=== PATIENT | female | born 1995 ===

== ENCOUNTER 2024-06-04 16:38 | Emergency (ER) | payer OTHER ==
[~2024-06-04] VITALS: Ht 160 cm; Wt 84.4 kg
[2024-06-04 17:55] LABS: Source, Urine Clean Catch
[2024-06-04 18:03] LABS: Appearance, Urine Clear (Clear); Bilirubin, Urine Neg (Neg); Blood, Urine Neg (Neg); Glucose Qualitative, Urine Neg (Neg); Ketones, Urine 1+ (Neg); Leukocyte Esterase, Urine Neg (Neg); Nitrite, Urine Neg (Neg); Protein, Urine Neg (Neg); Urobilinogen, Urine NORM (Normal); pH, Urine 6.5 (5.0-8.0)
[2024-06-04 18:07] LABS: Color, Urine Pale Yellow (P-Yellow)
== END 2024-06-04 19:30 | disposition home or self-care (01) ==
LOC: ER 16:38
PROVIDERS: Physician Assistant
DX: O26.892 Other specified pregnancy related conditions, second trimester (principal); Z3A.19 19 weeks gestation of pregnancy; R10.32 Left lower quadrant pain; R10.31 Right lower quadrant pain
CPT/HCPCS: 76816; 81003; 99284-25

== ENCOUNTER 2024-10-10 19:01 | Inpatient (IN) | payer OTHER ==
[2024-10-10] VITALS (10 sets, daily range): BP systolic 126–154; BP diastolic 72–98
[~2024-10-10] VITALS: Ht 160 cm; Wt 93.1 kg
[~2024-10-10 19:01] MED LIST: Methylergonovine Maleate 0.2MG / ML 1ML Amp IV ONE
[2024-10-10] MEDS ORDERED: FentaNYL 2mcg/ml-Bup 0.1% Epd 250 ML EPI PRN (19:15)
[2024-10-10] MEDS ORDERED: ePHEDrine Sulfate 50 MG/ML 1ML Injection XX PRN (19:15)
[2024-10-10] MEDS ORDERED: Tranexamic Acid 100 ML IV SCH (19:15)
[2024-10-10] MEDS ORDERED: Ondansetron HCl 2 MG / ML 2ML Vial IV PRN (19:15)
[2024-10-10] MEDS ORDERED: Methylergonovine Maleate 0.2MG / ML 1ML Amp IM PRN (19:15)
[2024-10-10] MEDS ORDERED: OXYTOCIN/RINGER'S LACTATE 500 ML IV PRN (19:15)
[2024-10-10] MEDS ORDERED: Oxytocin 10 Unit / ML Vial IM PRN (19:15)
[2024-10-10] MEDS ORDERED: Carboprost Tromethamine 250 MCG/ML 1ML Amp IM PRN (19:15)
[2024-10-10] MEDS ORDERED: FentaNYL Citrate 50 MCG/ML 2 ML Injection IV PRN (19:20)
[2024-10-10] MEDS ORDERED: PRENATAL 19 TA1 EAC3 PO (19:45)
[2024-10-10] MEDS ORDERED: URSO300 PO (19:46)
[2024-10-10 19:52] LABS: BASOPHILS ABSOLUTE AUTO 0.02 K/mm3 (0.00-0.23); BASOPHILS PERCENT AUTO 0 % (0-2); EOSINOPHILS ABSOLUTE AUTO 0.03 K/mm3 (0.00-0.68); EOSINOPHILS PERCENT AUTO 0 % (0-6); Hematocrit 30.5 % (33.0-51.0); Hemoglobin 10.6 g/dL (11.5-16.0); IMMATURE GRAN ABSOLUTE AUTO 0.03 K/mm3 (0.00-0.10); IMMATURE GRAN PERCENT AUTO 0 % (0-1); LYMPHOCYTES ABSOLUTE AUTO 1.88 K/mm3 (0.84-5.20); LYMPHOCYTES PERCENT AUTO 21 % (21-46); MONOCYTES ABSOLUTE AUTO 0.65 K/mm3 (0.16-1.47); MONOCYTES PERCENT AUTO 7 % (4-13); Mean Corpuscular HGB Conc 34.8 g/dL (31.5-36.5); Mean Corpuscular Volume 82 fL (80-100); NEUTROPHILS ABSOLUTE AUTO 6.21 K/mm3 (1.96-9.15); NEUTROPHILS PERCENT AUTO 71 % (41-73); NRBC ABSOLUTE 0.00 K/mm3 (0.00-0.02); NRBC Auto 0.0 /100 WBC (0.0-0.2); Platelet Count 333 K/mm3 (150-400); RDW Coefficient Variation 12.9 % (11.7-14.2); RDW Standard Deviation 38.1 fL (35.1-46.3)
[2024-10-11] VITALS (27 sets, daily range): BP systolic 119–146; BP diastolic 71–91
[2024-10-11] MEDS ORDERED: OXYTOCIN/RINGER'S LACTATE 500 ML IV SCH (05:00)
[2024-10-12] VITALS (28 sets, daily range): BP systolic 120–177; BP diastolic 65–106
[2024-10-12] MEDS ORDERED: Witch Hazel/Glycerin PADS TOP PRN (07:10)
[2024-10-12] MEDS ORDERED: Ketorolac Tromethamine 30mg Vial IV PRN (07:10)
[2024-10-12] MEDS ORDERED: Carboprost Tromethamine 250 MCG/ML 1ML Amp IM PRN (07:15)
[2024-10-12] MEDS ORDERED: Methylergonovine Maleate 0.2MG / ML 1ML Amp IM PRN (07:15)
[2024-10-12] MEDS ORDERED: OXYTOCIN/RINGER'S LACTATE 500 ML IV SCH (07:15)
[2024-10-12] MEDS ORDERED: Oxytocin 10 Unit / ML Vial IM ONE (07:20)
[2024-10-12] MEDS ORDERED: Benzocaine Topical Anesthetic Spray 60GM TOP PRN (07:20)
[2024-10-12] MEDS ORDERED: Prenatal Vit/FE Fumarate/FA 1 Tab PO SCH (09:00)
[2024-10-12] MEDS ORDERED: IBUP800 PO (11:07)
[2024-10-12] MEDS ORDERED: ACET500 PO (11:07)
[2024-10-13 05:37] VITALS: BP 125/81
[2024-10-13 08:43] VITALS: BP 140/88
[2024-10-13 13:08] VITALS: BP 133/83
--- NOTE | 2024-10-13 13:19 | NUR ---
dc home with SO, pt ambulated out, encouraged to call MD with problems.
== END 2024-10-13 13:18 | disposition home or self-care (01) | DRG 807 ==
LOC: OBS 19:01 → BC 19:03 → OBS 19:24 → BC 19:25
PROVIDERS: ADMIT Advanced Practice Midwife
PROC: 3E033VJ Introduction of Other Hormone into Peripheral Vein, Percutaneous Approach (ICD-10-PCS; 2024-10-10)
PROC: 0U7C7DJ Dilation of Cervix with Intraluminal Device, Temporary, Via Natural or Artificial Opening (ICD-10-PCS; 2024-10-10)
PROC: 4A1HXCZ Monitoring of Products of Conception, Cardiac Rate, External Approach (ICD-10-PCS; 2024-10-10)
PROC: 10E0XZZ Delivery of Products of Conception, External Approach (ICD-10-PCS; principal; 2024-10-12)
PROC: 10907ZC Drainage of Amniotic Fluid, Therapeutic from Products of Conception, Via Natural or Artificial Opening (ICD-10-PCS; 2024-10-12)
DX: O26.643 Intrahepatic cholestasis of pregnancy, third trimester (principal); Z37.0 Single live birth; Z3A.36 36 weeks gestation of pregnancy; O99.214 Obesity complicating childbirth; O99.344 Other mental disorders complicating childbirth; F41.8 Other specified anxiety disorders; K76.89 Other specified diseases of liver; O75.89 Other specified complications of labor and delivery; R03.0 Elevated blood-pressure reading, without diagnosis of hypertension; O69.81X0 Labor and delivery complicated by cord around neck, without compression, not applicable or unspecified; O71.82 Other specified trauma to perineum and vulva
CPT/HCPCS: 36415; 51702; 80053; 83789; 85025; 86850; 86900; 86901; A9270; J1885; J2210; J2405; J2590; J3010; J7120

== ENCOUNTER 2024-10-26 03:24 | Emergency (ER) | payer OTHER ==
[~2024-10-26] VITALS: Ht 160 cm; Wt 86.2 kg
[~2024-10-26 03:24] MED LIST changes: +ACET500 PO; +IBUP800 PO; -Methylergonovine Maleate 0.2MG / ML 1ML Amp IV ONE; +PRENATAL 19 TA1 EAC3 PO; +URSO300 PO
[2024-10-26] MEDS ORDERED: Lidocaine 2% Viscous Soln 15 ML UDC PO ONE (03:45)
[2024-10-26 04:25] LABS: BASOPHILS ABSOLUTE AUTO 0.04 K/mm3 (0.00-0.23); BASOPHILS PERCENT AUTO 0 % (0-2); EOSINOPHILS ABSOLUTE AUTO 0.36 K/mm3 (0.00-0.68); EOSINOPHILS PERCENT AUTO 4 % (0-6); Hematocrit 31.0 % (33.0-51.0); Hemoglobin 9.9 g/dL (11.5-16.0); IMMATURE GRAN ABSOLUTE AUTO 0.17 K/mm3 (0.00-0.10); IMMATURE GRAN PERCENT AUTO 2 % (0-1); LYMPHOCYTES ABSOLUTE AUTO 2.33 K/mm3 (0.84-5.20); LYMPHOCYTES PERCENT AUTO 22 % (21-46); MONOCYTES ABSOLUTE AUTO 0.51 K/mm3 (0.16-1.47); MONOCYTES PERCENT AUTO 5 % (4-13); Mean Corpuscular HGB Conc 31.9 g/dL (31.5-36.5); Mean Corpuscular Volume 85 fL (80-100); NEUTROPHILS ABSOLUTE AUTO 7.00 K/mm3 (1.96-9.15); NEUTROPHILS PERCENT AUTO 67 % (41-73); NRBC ABSOLUTE 0.00 K/mm3 (0.00-0.02); NRBC Auto 0.0 /100 WBC (0.0-0.2); Platelet Count 564 K/mm3 (150-400); RDW Coefficient Variation 13.1 % (11.7-14.2); RDW Standard Deviation 40.4 fL (35.1-46.3)
[2024-10-26 04:47] LABS: Alanine Aminotransfer (ALT/SGP 26.0 U/L (12-78); Albumin, Blood 2.5 g/dL (3.4-5.0); Albumin/Globulin Ratio 0.6 (0.8-1.8); Anion Gap 9.0 mmol/L (3-11); Aspartate Aminotrans (AST/SGOT 42.0 U/L (12-37); Bilirubin, Total 0.2 mg/dL (0.1-1.0); Blood Urea Nitrogen 13.0 mg/dL (8-24); CO2, Blood 26.0 mmol/L (21-32); Calcium, Blood 8.7 mg/dL (8.5-10.1); Chloride, Blood 109.0 mmol/L (98-108); Creatinine, Blood 0.82 mg/dL (0.40-1.00); Globulin, Blood 4.3 g/dL (2.2-4.0); Glucose, Blood 101.0 mg/dL (70-99); Potassium, Blood 3.7 mmol/L (3.5-5.5); Sodium, Blood 140.0 mmol/L (136-145); Total Protein, Blood 6.8 g/dL (6.4-8.2)
[2024-10-26] MEDS ORDERED: FAMO20 PO (05:14)
[2024-10-26] MEDS ORDERED: ALMACONE SUSPE355 ML PO (05:14)
[2024-10-26] MEDS ORDERED: MIRALAX17 GM PO (05:14)
== END 2024-10-26 05:39 | disposition home or self-care (01) ==
LOC: ER 03:24
PROVIDERS: Emergency Medicine
DX: K21.9 Gastro-esophageal reflux disease without esophagitis (principal); Z59.89 Other problems related to housing and economic circumstances; Z79.899 Other long term (current) drug therapy
CPT/HCPCS: 71046; 80053; 83690; 84484; 85025; 93005; 93010; 99284-25; A9270